=== PATIENT | male | born 1950 | race Two or more races ===

== ENCOUNTER 2018-10-19 22:38 | Inpatient (IN) | payer MEDICARE ==
[~2018-10-19] VITALS: Ht 182.9 cm; Wt 97.0 kg
[2018-10-19] MEDS ORDERED: SODIUM CHLORIDE 0.9% 1,000 ML IV ONE ×2 (22:57→23:08)
[2018-10-19] MEDS ORDERED: SODIUM CHLORIDE FLUSH 10ML SYR IVF ONE (23:00)
[2018-10-19 23:11] LABS: MEAN CORPUSCULAR HEMOGLOBIN 32.7 pg (27.5-34.5); MEAN CORPUSCULAR HGB CONC 34.2 g/dL (33.2-36.2); MEAN CORPUSCULAR VOLUME 95.7 fL (81-97); PLATELET COUNT 285 x10^3/uL (130-400); RED BLOOD COUNT 4.56 x10^6/uL (4.38-5.82); RED CELL DISTRIBUTION WIDTH 14.3 % (9.4-14.8)
[2018-10-19 23:22] LABS: INTERNATIONAL NORMALIZED RATIO 0.95 (0.93-1.1)
[2018-10-19 23:25] LABS: MD YES
[2018-10-19 23:28] LABS: <PLATELET ESTIMATE> ADEQUATE; <PLT MORPHOLOGY> NORMAL PLT MORPH; <RBC MORPHOLOGY> NORMAL; BASOS#(MANUAL) 0.12 x10^3/uL (0-0.1); BASOS% (MANUAL) 1 % (0-1); EOS% (MANUAL) 5 % (1-7); LYMPH#(MANUAL) 1.19 x10^3/uL (1-3.4); LYMPHS% (MANUAL) 10 % (22-44); MONOS#(MANUAL) 0.71 x10^3/uL (0.3-2.7); MONOS% (MANUAL) 6 % (2-9); SEG#(MANUAL) 9.28 x10^3/uL (1.8-6.8); SEGS% (MANUAL) 78 % (42-75)
[2018-10-19] MEDS ORDERED: ONDANSETRON 2MG/ML, 2ML IVPush PRN (23:30)
[2018-10-19] MEDS ORDERED: SODIUM CHLORIDE FLUSH 10ML SYR IVF PRN (23:30)
[2018-10-19] MEDS ORDERED: MORPHINE SULFATE 4 MG/ML, 1ML IVPush PRN (23:30)
[2018-10-20] MEDS ORDERED: SODIUM CHLORIDE 0.9% 1,000 ML IV SCH (00:20)
[2018-10-20] MEDS ORDERED: hydrALAzine 20 MG/ML, 1ML IVPush PRN (00:30)
[2018-10-20] MEDS ORDERED: morphine SULFATE 10 MG/ML, 1ML IVPush PRN (00:30)
[2018-10-20] MEDS ORDERED: ONDANSETRON 2MG/ML, 2ML IVPush PRN ×2 (00:30→11:00)
[2018-10-20] MEDS ORDERED: ONDANSETRON 2MG/ML, 2ML ONE ×2 (00:42→06:01)
[2018-10-20] MEDS ORDERED: MORPHINE SULFATE 4 MG/ML, 1ML ONE (00:42)
[2018-10-20] MEDS ORDERED: BUPIVACAINE/PF-EPI 0.5% 1:200K ONE (00:46)
[2018-10-20 00:58] LABS: ANION GAP 10 mmol/L (5-15); CALCIUM 8.6 mg/dL (8.5-10.1); CHLORIDE 107 mmol/L (98-107); CREATININE 1.02 mg/dL (0.7-1.3)
--- NOTE | 2018-10-20 03:42 | NUR ---
RECEIVED REPORT AND ASSUMED CARE. PT. IS RESTING WITHOUT CONCERNS. PT. REMAINS NPO. PT. STATES RELIEF FROM HIS PAIN MEDS. PT.'S HOB REMAINS ELEVATED GREATER THAN 30 DEGREES. PT.'S SIDERAILS ARE UP X 3 WITH THE CALL LIGHT IN PLACE. PT. HAS NO CONCERNS AT THIS TIME.
[2018-10-20] MEDS ORDERED: ATOR20TA37 PO (04:04)
[2018-10-20] MEDS ORDERED: LISI40TA PO (04:04)
[2018-10-20] MEDS ORDERED: HYDR25TA6 PO (04:04)
[2018-10-20] MEDS ORDERED: LATA7.5D OP (04:04)
[2018-10-20] MEDS ORDERED: DORZ10DR27 OP (04:04)
[2018-10-20] MEDS ORDERED: NIAC500T9 PO (04:04)
[2018-10-20] MEDS ORDERED: METF500T17 PO (04:04)
[2018-10-20] MEDS ORDERED: ALLO100T30 PO (04:04)
--- NOTE | 2018-10-20 04:17 | NUR ---
REPORT WAS GIVEN TO THE ACTIVITIES MANAGER. PT.'S BLOOD SUGARS WERE MONITORED. PT. IS UNDRESSED AND HIS BELONGINGS WERE LABELED. PT. HAS NO CONCERNS AT THIS TIME.
[2018-10-20] MEDS ORDERED: MIDAZOLAM 1 MG/ML, 2ML ONE (05:00)
[2018-10-20] MEDS ORDERED: FENTANYL PF 250 MCG/5ML ONE (05:00)
[2018-10-20] MEDS ORDERED: NEOSTIGMINE 1 MG/ML, 10ML ONE (05:03)
[2018-10-20] MEDS ORDERED: GLYCOPYRROLATE 0.2MG/1ML, 5ML ONE (05:03)
[2018-10-20] MEDS ORDERED: DEXAMETHASONE 4 MG/ML, 5ML ONE (05:03)
[2018-10-20] MEDS ORDERED: SUCCINYLCHOLINE 20 MG/ML, 10ML ONE (05:29)
[2018-10-20] MEDS ORDERED: PROPOFOL 10 MG/ML, 20ML ONE (05:29)
[2018-10-20] MEDS ORDERED: ROCURONIUM 10MG/ML,5ML ONE (05:29)
[2018-10-20] MEDS ORDERED: MIDAZOLAM 1 MG/ML, 2ML IV PRN (05:30)
[2018-10-20] MEDS ORDERED: PROMETHAZINE 25 MG/ML, 1ML IV PRN (05:30)
[2018-10-20] MEDS ORDERED: LABETALOL 5MG/ML, 20ML IV PRN (05:30)
[2018-10-20] MEDS ORDERED: HALOPERIDOL 5 MG/ML IV PRN (05:30)
[2018-10-20] MEDS ORDERED: PROMETHAZINE 12.5 MG SUPP PR PRN (05:30)
[2018-10-20] MEDS ORDERED: ONDANSETRON 2MG/ML, 2ML IV PRN (05:30)
[2018-10-20] MEDS ORDERED: ALBUTEROL SULFATE 2.5 MG/3 ML NPPB PRN (05:30)
[2018-10-20] MEDS ORDERED: MORPHINE SULFATE 4 MG/ML, 1ML IVPush PRN (05:30)
[2018-10-20] MEDS ORDERED: OXYcodone 5 MG/5 ML ORAL.SOL UDC PO PRN (05:30)
[2018-10-20] MEDS ORDERED: DIAZEPAM 5 MG/ML, 2ML IVPush PRN (05:30)
[2018-10-20] MEDS ORDERED: EPHEDRINE 50 MG/ML, 1ML IVPush PRN (05:30)
[2018-10-20] MEDS ORDERED: ONDANSETRON ODT 8 MG PO PRN (05:30)
[2018-10-20] MEDS ORDERED: hydrALAzine 20 MG/ML, 1ML IV PRN (05:30)
[2018-10-20] MEDS ORDERED: MEPERIDINE/PF 25MG/0.5ML IVPush PRN (05:30)
[2018-10-20] MEDS ORDERED: BUPIVACAINE/PF-EPI 0.5% 1:200K INFIL ONE (05:33)
[2018-10-20] MEDS ORDERED: OXYcodone 5 MG/5 ML ORAL.SOL UDC ONE (06:34)
[2018-10-20] MEDS ORDERED: HYDROmorphone 2 MG/ML, 1ML ONE (06:34)
[2018-10-20] MEDS ORDERED: FENTANYL PF 100 MCG/2ML ONE (06:34)
[2018-10-20] MEDS: FENTANYL PF 100 MCG/2ML IV PRN ×2 (06:37→06:50)
[2018-10-20] MEDS: HYDROmorphone 2 MG/ML, 1ML IVPush PRN ×4 (06:39→07:55)
[2018-10-20] MEDS: INSULIN LISPRO 100 UNITS/ML, PEN SQ-INSULIN SCH ×4 (07:00→21:52)
[2018-10-20] MEDS ORDERED: CEFTRIAXONE PMX 1GM/50ML 50 ML IV SCH (08:00)
[2018-10-20] MEDS ORDERED: METRONIDAZOLE PMX 500MG/100ML 100 ML IV SCH (08:00)
[2018-10-20] MEDS ORDERED: morphine SULFATE 10 MG/ML, 1ML ONE (10:48)
[2018-10-20] MEDS: MORPHINE SULFATE 4 MG/ML, 1ML IVPush PRN ×2 (10:53→16:53)
[2018-10-20] MEDS: POTASSIUM CHLORIDE 20 MEQ in LACTATED RINGERS 1,000 ML IV SCH ×2 (10:59→21:53)
[2018-10-20] MEDS: ENOXAPARIN 40 MG/0.4 ML SQ SCH (11:00)
[2018-10-20] MEDS ORDERED: HYDROmorphone 2 MG/ML, 1ML IVPush PRN (11:00)
[2018-10-20 13:00] VITALS: BP 100/50
[2018-10-20] MEDS: FAMOTIDINE 20 MG/2 ML IVPush SCH (15:37)
[2018-10-20] MEDS ORDERED: ACETAMINOPHEN 325 MG TABLET PO PRN (16:00)
[2018-10-20] MEDS: CEFOTETAN PMX 1GM/50ML 50 ML IVPB SCH (16:48)
[2018-10-20 18:59] VITALS: BP 100/56
[2018-10-20 23:39] VITALS: BP 103/62
[2018-10-21 03:54] VITALS: BP 109/59
[2018-10-21 04:37] LABS: MEAN CORPUSCULAR HEMOGLOBIN 32.9 pg (27.5-34.5); MEAN CORPUSCULAR VOLUME 96.7 fL (81-97); MEAN PLATELET VOLUME 8.7 fL (7.4-10.4); PLATELET COUNT 240 x10^3/uL (130-400); RED BLOOD COUNT 3.99 x10^6/uL (4.38-5.82); RED CELL DISTRIBUTION WIDTH 14.6 % (9.4-14.8)
[2018-10-21 04:49] LABS: ALANINE AMINOTRANSFERASE 69 U/L (12-78); ALBUMIN 2.9 g/dL (3.4-5.0); ANION GAP 8 mmol/L (5-15); CALCIUM 7.9 mg/dL (8.5-10.1); CHLORIDE 107 mmol/L (98-107); CREATININE 1.01 mg/dL (0.7-1.3)
[2018-10-21 04:52] LABS: ALKALINE PHOSPHATASE 71 U/L (45-117); BILIRUBIN,TOTAL 1.1 mg/dL (0.2-1.0); TOTAL PROTEIN 5.9 g/dL (6.4-8.2)
[2018-10-21] MEDS: CEFOTETAN PMX 1GM/50ML 50 ML IVPB SCH (05:18)
[2018-10-21] MEDS: FAMOTIDINE 20 MG/2 ML IVPush SCH ×3 (05:19→20:45)
[2018-10-21 05:52] LABS: BASOPHILS # (AUTO) 0.08 x10^3/uL (0-0.1); BASOPHILS % (AUTO) 1 % (0-1); EOSINOPHILS # (AUTO) 0.07 x10^3/uL (0-0.4); EOSINOPHILS % (AUTO) 1 % (1-7); LYMPHOCYTES # (AUTO) 1.26 x10^3/uL (1-3.4); LYMPHOCYTES % (AUTO) 11 % (22-44); MD SCAN; MONOCYTES # (AUTO) 1.96 x10^3/uL (0.2-0.8); MONOCYTES % (AUTO) 17 % (2-9); NEUTROPHILS % (AUTO) 72 % (42-75)
[2018-10-21] MEDS: INSULIN LISPRO 100 UNITS/ML, PEN SQ-INSULIN SCH ×4 (07:00→22:49)
[2018-10-21] MEDS: POTASSIUM CHLORIDE 20 MEQ in LACTATED RINGERS 1,000 ML IV SCH ×2 (07:06→17:56)
[2018-10-21 07:37] VITALS: BP 108/61
[2018-10-21] MEDS: CEFTRIAXONE PMX 1GM/50ML 50 ML IV SCH (08:46)
[2018-10-21] MEDS: ENOXAPARIN 40 MG/0.4 ML SQ SCH (08:46)
[2018-10-21] MEDS: METRONIDAZOLE PMX 500MG/100ML 100 ML IV SCH ×3 (08:46→20:45)
[2018-10-21 14:13] VITALS: BP 145/75
[2018-10-21 18:50] VITALS: BP 115/64
[2018-10-22 01:09] VITALS: BP 111/67
[2018-10-22] MEDS: METRONIDAZOLE PMX 500MG/100ML 100 ML IV SCH ×4 (02:53→21:03)
[2018-10-22] MEDS: POTASSIUM CHLORIDE 20 MEQ in LACTATED RINGERS 1,000 ML IV SCH ×3 (03:28→23:07)
[2018-10-22 05:09] LABS: MEAN CORPUSCULAR HEMOGLOBIN 33.1 pg (27.5-34.5); MEAN CORPUSCULAR HGB CONC 34.3 g/dL (33.2-36.2); MEAN CORPUSCULAR VOLUME 96.6 fL (81-97); MEAN PLATELET VOLUME 8.8 fL (7.4-10.4); PLATELET COUNT 204 x10^3/uL (130-400); RED BLOOD COUNT 3.82 x10^6/uL (4.38-5.82); RED CELL DISTRIBUTION WIDTH 14.1 % (9.4-14.8)
[2018-10-22 05:42] LABS: BASOPHILS # (AUTO) 0.12 x10^3/uL (0-0.1); BASOPHILS % (AUTO) 1 % (0-1); EOSINOPHILS # (AUTO) 0.34 x10^3/uL (0-0.4); EOSINOPHILS % (AUTO) 3 % (1-7); LYMPHOCYTES # (AUTO) 0.98 x10^3/uL (1-3.4); LYMPHOCYTES % (AUTO) 9 % (22-44); MD SCAN; MONOCYTES # (AUTO) 2.15 x10^3/uL (0.2-0.8); MONOCYTES % (AUTO) 19 % (2-9); NEUTROPHILS % (AUTO) 69 % (42-75)
[2018-10-22 06:48] VITALS: BP 117/67
[2018-10-22] MEDS: INSULIN LISPRO 100 UNITS/ML, PEN SQ-INSULIN SCH ×4 (07:23→21:00)
[2018-10-22] MEDS: ENOXAPARIN 40 MG/0.4 ML SQ SCH (08:29)
[2018-10-22] MEDS: FAMOTIDINE 20 MG/2 ML IVPush SCH ×2 (08:29→21:03)
[2018-10-22] MEDS: CEFTRIAXONE PMX 1GM/50ML 50 ML IV SCH (08:29)
[2018-10-22] MEDS ORDERED: OXYcodone/APAP 5/325MG TABLET PO PRN (08:30)
[2018-10-22 13:09] VITALS: BP 115/55
[2018-10-22 21:02] VITALS: BP 133/74
[2018-10-23 01:50] VITALS: BP 107/63
[2018-10-23] MEDS: OXYcodone/APAP 5/325MG TABLET PO PRN ×5 (02:32→22:25)
[2018-10-23] MEDS: METRONIDAZOLE PMX 500MG/100ML 100 ML IV SCH (02:32)
[2018-10-23 05:47] LABS: CHLORIDE 104 mmol/L (98-107)
[2018-10-23 05:56] LABS: ALANINE AMINOTRANSFERASE 45 U/L (12-78); ALBUMIN 2.6 g/dL (3.4-5.0); ALKALINE PHOSPHATASE 80 U/L (45-117); ANION GAP 8 mmol/L (5-15); BILIRUBIN,TOTAL 0.8 mg/dL (0.2-1.0); CALCIUM 8.2 mg/dL (8.5-10.1); CREATININE 0.79 mg/dL (0.7-1.3); MEAN CORPUSCULAR HGB CONC 34.2 g/dL (33.2-36.2); MEAN CORPUSCULAR VOLUME 96.4 fL (81-97); MEAN PLATELET VOLUME 8.2 fL (7.4-10.4); PLATELET COUNT 261 x10^3/uL (130-400); RED BLOOD COUNT 4.02 x10^6/uL (4.38-5.82); RED CELL DISTRIBUTION WIDTH 13.9 % (9.4-14.8); TOTAL PROTEIN 6.1 g/dL (6.4-8.2)
[2018-10-23] MEDS: INSULIN LISPRO 100 UNITS/ML, PEN SQ-INSULIN SCH ×4 (07:00→20:43)
[2018-10-23 07:32] VITALS: BP 117/73
[2018-10-23 07:42] LABS: MD YES
[2018-10-23 07:49] LABS: BAND#(MANUAL) 0.39 x10^3/uL; BANDS%(MANUAL) 4 % (0-7); BASOS% (MANUAL) 1 % (0-1); EOS#(MANUAL) 0.39 x10^3/uL (0.0-0.4); EOS% (MANUAL) 4 % (1-7); LYMPH#(MANUAL) 1.18 x10^3/uL (1-3.4); LYMPHS% (MANUAL) 12 % (22-44); MONOS#(MANUAL) 1.18 x10^3/uL (0.3-2.7); MONOS% (MANUAL) 12 % (2-9); SEG#(MANUAL) 6.57 x10^3/uL (1.8-6.8); SEGS% (MANUAL) 67 % (42-75)
[2018-10-23 07:50] LABS: <PLATELET ESTIMATE> ADEQUATE; <PLT MORPHOLOGY> NORMAL PLT MORPH; <RBC MORPHOLOGY> NORMAL
[2018-10-23] MEDS: ENOXAPARIN 40 MG/0.4 ML SQ SCH (09:32)
[2018-10-23] MEDS: POTASSIUM CHLORIDE 20 MEQ in LACTATED RINGERS 1,000 ML IV SCH ×2 (09:32→17:26)
[2018-10-23] MEDS: AMOXICILLIN/CLAV 875-125MG TABLET PO SCH ×2 (09:32→20:42)
[2018-10-23] MEDS: metroNIDAZOLE 500 MG TABLET PO SCH ×3 (09:32→20:43)
[2018-10-23] MEDS: TAMSULOSIN 0.4 MG CAP.ER.24H PO SCH (09:32)
[2018-10-23] MEDS: FAMOTIDINE 20 MG/2 ML IVPush SCH ×2 (09:32→20:43)
[2018-10-23 13:06] VITALS: BP 106/69
[2018-10-23 19:14] VITALS: BP 149/77
[2018-10-24 02:55] VITALS: BP 146/74
[2018-10-24] MEDS: OXYcodone/APAP 5/325MG TABLET PO PRN ×2 (04:12→13:33)
[2018-10-24] MEDS: INSULIN LISPRO 100 UNITS/ML, PEN SQ-INSULIN SCH ×2 (06:21→10:50)
[2018-10-24 07:33] VITALS: BP 129/77
[2018-10-24] MEDS ORDERED: FAMOTIDINE 20 MG TABLET PO SCH (09:30)
[2018-10-24] MEDS ORDERED: FAMOTIDINE 20 MG TABLET ONE (09:31)
[2018-10-24] MEDS: ENOXAPARIN 40 MG/0.4 ML SQ SCH (09:38)
[2018-10-24] MEDS: TAMSULOSIN 0.4 MG CAP.ER.24H PO SCH (09:38)
[2018-10-24] MEDS: AMOXICILLIN/CLAV 875-125MG TABLET PO SCH (09:38)
[2018-10-24] MEDS: metroNIDAZOLE 500 MG TABLET PO SCH (09:38)
[2018-10-24] MEDS ORDERED: TAMS-11 PO (11:13)
[2018-10-24] MEDS ORDERED: AMOX1TAB12 PO (11:13)
[2018-10-24] MEDS ORDERED: METR500T PO ×2 (11:13)
[2018-10-24] MEDS ORDERED: OXYC1TAB7 PO (11:13)
[2018-10-24 14:08] VITALS: BP 133/77
== END 2018-10-24 14:17 | disposition home health service (06) | DRG 329 ==
LOC: ED 23:03 → EDIP 23:08 → ED 23:40 → 4NOR 10-20 12:48
PROVIDERS: ADMIT Family Medicine; ATTEND Family Medicine
PROC: 0D1N0Z4 Bypass Sigmoid Colon to Cutaneous, Open Approach (ICD-10-PCS; 2018-10-20)
PROC: 0DNN0ZZ Release Sigmoid Colon, Open Approach (ICD-10-PCS; 2018-10-20)
PROC: 0DJD4ZZ Inspection of Lower Intestinal Tract, Percutaneous Endoscopic Approach (ICD-10-PCS; principal; 2018-10-20 05:00)
DX: K62.9 Disease of anus and rectum, unspecified (principal); K63.1 Perforation of intestine (nontraumatic); E87.2 Acidosis; D64.9 Anemia, unspecified; D72.829 Elevated white blood cell count, unspecified; E11.9 Type 2 diabetes mellitus without complications; E78.5 Hyperlipidemia, unspecified; H40.9 Unspecified glaucoma; I10 Essential (primary) hypertension; K59.00 Constipation, unspecified; M10.9 Gout, unspecified; R09.02 Hypoxemia; R33.9 Retention of urine, unspecified; K66.0 Peritoneal adhesions (postprocedural) (postinfection); Z90.49 Acquired absence of other specified parts of digestive tract; Z53.31 Laparoscopic surgical procedure converted to open procedure; Z98.49 Cataract extraction status, unspecified eye
CPT/HCPCS: 36415; 80048; 80053; 82378; 82962; 83605; 85025; 85610; 85730; 87040; 93005; 96374; 96375; G0378; J0696; J1100; J1170; J1650; J2250; J2270; J2405; J2704; J2710; J3010; J3480; J3490; J0330; J1815; J7030; J7120

== ENCOUNTER → 2018-10-27 | Outpatient (CLI) | payer MEDICARE ==
[~2018-10-27] MED LIST: ALLO100T30 PO; AMOX1TAB12 PO; ATOR20TA37 PO; DORZ10DR27 OP; HYDR25TA6 PO; LATA7.5D OP; LISI40TA PO; METF500T17 PO; METR500T PO; NIAC500T9 PO; OXYC1TAB7 PO; TAMS-11 PO
== END | disposition home or self-care (01) ==
LOC: WOUND 08:02
PROVIDERS: ATTEND Internal Medicine Cardiovascular Disease
DX: Z93.3 Colostomy status (principal); E11.39 Type 2 diabetes mellitus with other diabetic ophthalmic complication; H40.9 Unspecified glaucoma; M10.9 Gout, unspecified; E78.5 Hyperlipidemia, unspecified; I10 Essential (primary) hypertension; Z87.891 Personal history of nicotine dependence; Z90.49 Acquired absence of other specified parts of digestive tract
CPT/HCPCS: G0463

== ENCOUNTER → 2018-10-30 | Outpatient (CLI) | payer MEDICARE | END | disposition home or self-care (01) | LOC: WOUND 08:00 | PROVIDERS: ATTEND Family Medicine | DX: Z93.3 Colostomy status (principal); E11.39 Type 2 diabetes mellitus with other diabetic ophthalmic complication; H40.9 Unspecified glaucoma; E78.5 Hyperlipidemia, unspecified; M10.9 Gout, unspecified; I10 Essential (primary) hypertension; Z87.891 Personal history of nicotine dependence; Z90.49 Acquired absence of other specified parts of digestive tract | CPT/HCPCS: 99214 ==